=== PATIENT | female | born 2000 | race Caucasian/White ===

== ENCOUNTER 2023-11-11 13:38 | Emergency (ER) | payer OTHER, SELFPAY ==
[2023-11-11 13:44] VITALS: BP 143/97; PULSE 90; TEMP 37.5; O2SAT 96; BMI 18.4
--- NOTE | 2023-11-11 13:49 | ED.FEMALEGU1 ---
HPI - Female Genitourinary General Chief complaint: Urogenital-Female Stated complaint: UTI SYMPTOMS Time Seen by Provider: 11/11/23 13:41 Source: patient Mode of arrival: walk-in Limitations: no limitations History of Present Illness HPI Narrative: 23-year-old female presents for dysuria and frequency. She has had it for 5 days. No back pain fever or vomiting. She believes she has a UTI, she has had 1 before. She only has symptoms when she urinates. Related Data Previous Rx's ?Medication ?Instructions ?Recorded nitrofurantoin 100 mg PO BID 7 days #14 caps 11/11/23 monohydrate/macrocrystals 100 mg capsule (Macrobid) Allergies Allergy/AdvReac Type Severity Reaction Status Date / Time No Known Drug Allergies Allergy Verified 11/11/23 13:43 Review of Systems ROS Narrative A ten point review of systems is negative except as noted above. Exam Narrative Exam Narrative: Nurses note and vital signs reviewed and patient is not hypoxic. General: The patient appears well and in no apparent distress. Patient is resting comfortably on cart. Skin: Warm, dry, no pallor noted. There is no rash noted. Head: Normocephalic, atraumatic Eye: Normal conjunctiva, no drainage Ears, Nose, Mouth, and Throat: oral mucosa is moist. Nares patent. Cardiovascular: Regular Rate and Rhythm Respiratory: Patient is in no distress, no accessory muscle use, lungs are clear to auscultation, no wheezing, rales or rhonchi Back: non-tender, no CVA tenderness bilaterally to percussion. GI: Soft and nontender Musculoskeletal: No joint swelling Neurological: A&O, normal speech Psychiatric: Cooperative Constitutional Vital Signs, click to edit/add: Last Vital Signs Temp 99.5 F 11/11/23 13:44 Pulse 90 11/11/23 13:44 Resp 15 11/11/23 13:44 BP 143/97 H 11/11/23 13:44 Pulse Ox 96 11/11/23 13:44 O2 Del Method Room Air 11/11/23 13:44 Course Vital Signs Vital signs: Vital Signs Temperature 99.5 F 11/11/23 13:44 Pulse Rate 90 11/11/23 13:44 Respiratory Rate 15 11/11/23 13:44 Blood Pressure 143/97 H 11/11/23 13:44 Pulse Oximetry 96 11/11/23 13:44 Oxygen Delivery Method Room Air 11/11/23 13:44 Temperature 99.5 F 11/11/23 13:44 Pulse Rate 90 11/11/23 13:44 Respiratory Rate 15 11/11/23 13:44 Blood Pressure 143/97 H 11/11/23 13:44 Pulse Oximetry 96 11/11/23 13:44 Oxygen Delivery Method Room Air 11/11/23 13:44 MDM - Female Genitourinary MDM Narrative Medical decision making narrative: She is not and UTI is identified. She was started on Macrobid here and prescribed the same. Treatment diagnosis and follow-up were discussed with the patient. Differential Diagnosis Differential diagnosis: Likely urinary tract infection and other (Pyelonephritis) Lab Data Attestation: I reviewed the patient's lab results. Labs: Lab Results 11/11/23 Range/Units 13:46 Urine Color Lt. yellow (YELLOW) Urine Clarity Clear (CLEAR) Urine pH 7.5 (5.0-9.0) Ur Specific [place] 1.010 (1.005-1.025) Urine Protein Negative (NEG/TRACE) mg/dL Urine Glucose (UA) Negative (NEGATIVE) mg/dL Urine Ketones Negative (NEGATIVE) mg/dL Urine Occult Blood Small A (NEGATIVE) Urine Nitrite Negative (NEGATIVE) Urine Bilirubin Negative (NEGATIVE) Urine Urobilinogen 0.2 (0.2-1.0) EU/dL Ur Leukocyte Esterase Large A (NEGATIVE) Urine RBC 0-2 (0-2) #/HPF Urine WBC >100 A (NONE SEEN) #/HPF Ur Squamous Epith Cells Moderate A (NONE/RARE) #/LPF Urine Crystals None seen (None Seen) #/HPF Urine Bacteria Moderate A (NONE SEEN) #/HPF Urine Casts None seen (NONE SEEN) #/LPF Urine Mucus None seen (NONE SEEN) Urine HCG, Qual Negative (NEGATIVE) Discharge Plan Discharge Stand Alone Forms: Portal Instructions Chief Complaint: Urogenital-Female Clinical Impression: Urinary tract infection Patient Disposition: Home, Self-Care Time of Disposition Decision: 14:49 Condition: Good Mode of Transportation: Private Vehicle Prescriptions / Home Meds: New nitrofurantoin monohyd/m-cryst [Macrobid] 100 mg capsule 100 mg PO BID 7 Days Qty: 14 0RF Rx Instructions: must administer with a meal/food Print Language: Malay Instructions: Urinary Tract Infection in Women (ED) Referrals: Physician,Non-Staff, MD [Primary Care Provider] - 1 week
[2023-11-11 14:22] LABS: Bilirubin Urine NEGATIVE (NEGATIVE); Blood Urine SMALL (NEGATIVE); Clarity Urine CLEAR (CLEAR); Color Urine LT. YELLOW (YELLOW); Glucose Urine UA NEGATIVE (NEGATIVE); Ketones Urine NEGATIVE (NEGATIVE); Leukocyte Esterase Urine LARGE (NEGATIVE); Nitrite Urine NEGATIVE (NEGATIVE); Protein Urine NEGATIVE (NEG/TRACE); Urobilinogen Urine 0.2 EU/dL (0.2-1.0); pH Urine 7.5 (5.0-9.0)
[2023-11-11 14:26] LABS: HCG Qualitative Urine* NEGATIVE (NEGATIVE); Internal Control Within Normal Limits
[2023-11-11 14:39] LABS: Bacteria Urine MODERATE #/HPF (NONE SEEN); WBC Urine >100 #/HPF (NONE SEEN)
[2023-11-11 14:40] LABS: Cast Seen? NONE SEEN #/LPF (NONE SEEN); Crystals Seen? None Seen #/HPF (None Seen); Mucus Urine NONE SEEN (NONE SEEN); RBC Urine 0-2 #/HPF (0-2); Squamous Epithelial Cell Urine MODERATE #/LPF (NONE/RARE)
[2023-11-11] MEDS: NITROFURANTOIN MONOHYD/MAC-CRST 100 MG CAPSULE PO (14:56)
[2023-11-11 14:58] VITALS: PULSE 84; O2SAT 99
== END 2023-11-11 14:58 | disposition home or self-care (01) ==
PROVIDERS: Emergency Provider Emergency Medicine
DX: N39.0 Urinary tract infection, site not specified (principal); Z87.440 Personal history of urinary (tract) infections
CPT/HCPCS: 81001; 84703; 99283

== ENCOUNTER 2023-12-24 23:32 | Emergency (ER) | payer OTHER, SELFPAY ==
[2023-12-24 23:38] VITALS: BP 125/75; PULSE 91; TEMP 36.7; O2SAT 98; BMI 18.4
--- OUTSIDE RECORDS SUMMARY | 2023-12-24 23:38 | XMS_ITS | CCD ---
Author Organization [facility] Care Team Providers Care Auto Transmission Specialist Name Role Phone JACKLYN ESPINOZA Admitting Unavailable JACKLYN ESPINOZA Attending Unavailable JACKLYN ESPINOZA Consulting Unavailable JACKLYN ESPINOZA Attending Unavailable JACKLYN ESPINOZA Consulting Unavailable JACKLYN ESPINOZA Admitting Unavailable ELIJAH Dempsey Primary Care Provider [phone] ELIJAH Dempsey Attending Provider Senait Dempsey Admitting Unavailable Senait Dempsey Attending Unavailable Senait Dempsey Primary Care Unavailable Medications Completed/Discontinued Medications Medication Drug Class(es) Dates Sig (Normalized) Sig (Original) dextromethorphan hydrobromide 15 mg / guaiFENesin 400 mg / pseudoephedrine hydrochloride 60 mg oral tablet (3 sources) alpha-Adrenergic Agonist, Uncompetitive G-gemkch-M-asparta te Receptor Antagonist, Sigma-1 Agonist Start: 06-08-2023 End: 12-18-2023 take 4 tablets by mouth every twenty-four hours Pseudoephedrine-Dm- Guaifenesin (Capmist Dm) 60-15-400 mg tablet Discontinued 1 TAB PO EVERY 4-6 HOURS June 08, 2023 1:00am December 18, 2023 9:35am do not exceed 4 doses per 24 hrs nitrofurantoin, macrocrystals 25 mg / nitrofurantoin, monohydrate 75 mg oral capsule (1 source) Nitrofuran Antibacterial Start: 06-15-2023 End: 12-18-2023 take 1 capsule by mouth twice daily at mealtime Nitrofurantoin Monohyd/M-Cryst (Macrobid) 100 mg capsule Discontinued 100 MG PO Twice daily 27 10June 15, 2023 1:00am December 18, 2023 9:35am must administer with a meal/food oseltamivir 75 mg oral capsule (3 sources) Neuraminidase Inhibitor Start: 06-08-2023 End: 12-18-2023 take 1 capsule by mouth twice daily Oseltamivir (Tamiflu) 75 mg capsule Discontinued 75 MG PO Twice daily 10 5 June 08, 2023 1:00am December 18, 2023 9:35am Problems Active Problems Problem Classification Problem Date Documented Da te Episodic/Chronic Immunizations and screening for infectious disease (4 sources) Encounter for immunization; Translations: [ENCOUNTER FOR IMMUNIZATION] Onset: 09-28-2020 Episodic Past or Other Problems Problem Classification Problem Date Documented Da te Episodic/Chronic Genitourinary symptoms and ill-defined conditions (1 source) Dysuria; Translations: [Dysuria] Onset: 06-09-2023 Episodic Results Test Name Value Interpretation Reference Range Facility No Panel InformationOrdered By: Senait Dempsey on 12-18-2023 COVID Antigen (POC) [facility] Quick Strep (POC) [facility] No Panel InformationOrdered By: Senait Dempsey on 06-08-2023 COVID/Influenza Antigen (POC) [facility] Urine Cultureon 06-08-2023 Bacteria identified Cx Nom (U) ORGANISM: Staphylococcus saprophyticus (O:STASAP) [place] Count >100,000 Aerobic RISA Charge (PCMIC38) ------ SUSCEPTIBILITY ----- ORGANISM: O:STASAP ANTIBIOTIC INTERPRETATION RISA Ciprofloxacin S <1 Daptomycin S <0.5 Levofloxacin S <1 Linezolid S 2 Nitrofurantoin S <32 Oxacillin S <0.25 Penicillin S 0.12 Tetracycline S <4 Trimethoprim/Sulfam ethoxazole S <0.5 Vancomycin S 1 S = SUSCEPTIBLE I = INTERMEDIATE R = RESISTANT BLANK = DATA NOT AVAILABLE, OR DRUG NOT ADVISABLE OR TESTED R* = RESISTANCE DUE TO EXTENDED SPECTRUM BETA-LACTAMASES ESBL = EXTENDED SPECTRUM BETA-LACTAMASE TFG = THYMIDINE-DEPENDENT STRAIN [place] = BETA-LACTAMASE POSITIVE IB = INDUCIBLE BETA-LACTAMASE. APPEARS IN PLACE OF 'S' WITH SPECIES KNOWN TO POSSESS INDUCIBLE BETA-LACTAMASES. POTENTIALLY THEY MAY BECOME RESISTANT TO ALL B-LACTAM DRUGS. PERFORMED BY: [facility] [place], [place] [id number] PATHOLOGIST BIG DATA ADMIN TREVON Heath [facility] Comment on above: Performed By: #### C UU #### [facility] [address] [id number] [facility] Vital Signs Date Time Vital Sign Value Performing Clinician Rudyi cristy 12-18-2023 09:35-0400 Body height 144.78 cm [facility] 12-18-2023 09:35-0400 Body mass index (BMI) [Ratio] 18.9 kg/m2 [facility] 12-18-2023 09:35-0400 Body temperature 97.5 [degF] [facility] 12-18-2023 09:35-0400 Body weight 39.71 kg [facility] 12-18-2023 09:35-0400 Diastolic blood pressure 61 mm[Hg] [facility] 12-18-2023 09:35-0400 Heart rate 109 /min [facility] 12-18-2023 09:35-0400 Respiratory rate 16 /min [facility] 12-18-2023 09:35-0400 SaO2% (BldA) [Mass fraction] 99 % [facility] 12-18-2023 09:35-0400 Systolic blood pressure 101 mm[Hg] [facility] 06-08-2023 17:54-0500 Body height 144.78 cm [facility] 06-08-2023 17:54-0500 Body mass index (BMI) [Ratio] 19.3 kg/m2 [facility] 06-08-2023 17:54-0500 Body temperature 99.3 [degF] [facility] 06-08-2023 17:54-0500 Body weight 40.53 kg [facility] 06-08-2023 17:54-0500 Heart rate 104 /min [facility] 06-08-2023 17:54-0500 Respiratory rate 16 /min [facility] 06-08-2023 17:54-0500 SaO2% (BldA) [Mass fraction] 98 % [facility] Encounters Encounter Date Encounter Type Care Provider Facility Start: 12-18-2023 End: 12-18-2023 ambulatory [facility] Work Phone: Start: 12-18-2023 End: 12-18-2023 Patient encounter procedure [facility] Physician [facility] [place] Work Phone: Start: 06-09-2023 End: 06-09-2023 Patient encounter procedure ELIJAH Dempsey Work Phone: [facility] [place] Work Phone: Start: 06-09-2023 End: 06-09-2023 ambulatory GUARD CHIEF Senait Dempsey Work Phone: [facility] Work Phone: Start: 06-08-2023 End: 06-08-2023 ambulatory [facility] Work Phone: Start: 06-08-2023 End: 06-08-2023 Patient encounter procedure [facility] [place] Work Phone: Start: 09-28-2020 End: 09-29-2020 ambulatory [facility] Facility:H1 Start: 09-07-2020 End: 09-08-2020 [facility] Facility:H1 Procedures Date Procedure Procedure Detail Performing Clinician Start: 12-18-2023 COVID Antigen (POC) Start: 12-18-2023 Quick Strep (POC) Start: 06-08-2023 COVID/Influenza Antigen (POC) Plan of Treatment Date Care Activity Detail Author Start: 06-08-2023 Bacteria identified in Urine by Culture [facility] Payers Date Payer Category Payer Self-pay 2002 Unknown [id number] 2002 Unknown [id number] 1959 Unknown [id number] Unknown [id number] Social History Date Type Detail [facility] Work Phone: Start: 2000 Sex Assigned At Female F [facility] Evaluation note Note Date & Type Note Facility Evaluation note No assessment information availa ble [facility] Work Phone: Summary Purpose Family History Relationship Condition Age at Onset Recorded Date/T edelmira father Hypertension Unknown Advance Directives Advance Directive Response Recorded Date/ Time Advance Directives No May 5:45pm Advance Directive Response Recorded Date/ Time Advance Directives No May 6:45pm Chief Complaint and Reason for Visit Chief Complaint sinus congestion, dy suria Chief Complaint sinus congestion, dy suria R30.0 Chief Complaint Sore throat Additional Source Comments INFORMATION SOURCE (unrecogn ized section and content) DATE CREATED AUTHOR 11/06/2020 [facility] DATE CREATED AUTHOR 'S ORGANIZ ATION 11/18/2023 [facility] Care Teams (unrecognized sec tion and content) Team Status: Active Member Role Status Dates NON STAFF Primary Care Provider Active Team Status: Inactive Member Role Status Dates Senait Dempsey APRN Attending Provider Active Start: June 08, 2023 End: June 08, 2023 NON STAFF Primary Care Provider Active Start: June 08, 2023 End: June 08, 2023 Team Status: Active Member Role Status Dates Senait Dempsey APRN Primary Care Provider Active Team Status: Inactive Member Role Status Dates Senait Dempsey APRN Primary Care Provi rogerio, Attending Provider Active Start: June 09, 2023 End: June 09, 2023 Team Status: Inactive Member Role Status Dates Senait Dempsey APRN Primary Care Provi rogerio, Attending Provider Active Start: December 18, 2023 End: December 18, 2023 Goals (unrecognized section and content) Goals may be documented in a n alternate sectionGoals may be documented in an alternate sectionGoals may be documented in an alternate section FOR RECORDS PERTAINING TO PATIENTS WHO ARE OR HAVE BEEN ENROLLED IN A CHEMICAL DEPENDENCY/SUBSTANCEABUSE PROGRAM, SOME INFORMATION MAY BE OMITTED. This clinical summary was aggregated from multiple sources. Caution should be exercised in using it in the provision of clinical care. This summary normalizes information from multiple sources, and as a consequence, information in this document may materially change the coding, format and clinical context of patient data. In addition, data may be omitted in some cases. CLINICAL DECISIONS SHOULD BE BASED ON THE PRIMARY CLINICAL RECORDS. [employer] [facility]. provides no warranty or guarantee of the accuracy or completeness of information in this document.
--- NOTE | 2023-12-24 23:57 | ED_ITS ---
HPI - Female Genitourinary General Chief complaint: Urogenital-Female Stated complaint: VAGINAL BLEEDING Time Seen by Provider: 12/24/23 23:38 Source: patient Mode of arrival: walk-in Limitations: no limitations History of Present Illness HPI Narrative: This 23-year-old female presents for evaluation of vaginal pain, light vaginal bleeding due to vaginal tears that she sustained during sexual intercourse with her boyfriend. She states the symptoms started this morning. She is not having any dysuria or hematuria. She states they have been using appropriate lubricant but she has still torn in her vagina. She denies any abdominal pain or back pain. She denies any vaginal discharge odor or itching but is having some pain due to the tears in her vagina. When questioned without her boyfriend in the room she denies that she is a victim of sexual trafficking and states that she is in a consensual sexual relationship with her boyfriend. Related Data Home Medications ?Medication ?Instructions ?Recorded ?Confirmed No Known Home Medications 12/24/23 12/24/23 Allergies Allergy/AdvReac Type Severity Reaction Status Date / Time No Known Drug Allergies Allergy Verified 12/24/23 23:44 Review of Systems ROS Status of ROS 10 or more systems reviewed and unremark able except as noted in history and below PFSH PFSH Social History Little interest or pleasure in doing things: not at all Feeling down, depressed, or hopeless: not at all Exam Narrative Exam Narrative: Vital signs and Nursing Notes reviewed: Patient is afebrile with a normal pulse, she is not hypoxic with pulse ox of 98% on room air General: Awake, alert, oriented, no acute distress, lying comfortably on the stretcher Neck: Supple, no meningeal signs, no anterior or posterior cervical lympha denopathy Chest: Lungs are clear to auscultation with good air entry, there is no wheezing rhonchi or rales appreciated no accessory muscle use, patient is speaking in complete sentences-no chest wall tenderness to palpation CVS: Regular rate and rhythm S1-S2, no murmurs rubs or gallops, pulses are brisk and equal bilaterally ABD: Soft, flat nondistended, nontender, no rebound guarding or rigidity, bowel sounds are normal, no pulsatile masses appreciated - exam assisted by BEKAH Aguirre-normal labia majora and minora with no tears or notable abnormalities. Pelvic exam performed after Uro-Jet was placed into the vagina for pain control, there is a small amount of notable vaginal bleeding on the left and right side of the vaginal vault with no active hemorrhaging. I am unable to actually ascertain exactly where the bleeding is coming from due to the rugae in the vagina. Cervix is normal in appearance. No discharge or bruising or tears noted to the cervix. Extremities: Moving all extremities, no lower extremity tenderness or swelling noted, negative Homans' sign, pulses are brisk and equal bilaterally Skin: Normal in appearance without rash,pallor, petechiae or purpura Neuro: No focal deficits Constitutional Vital Signs, click to edit/add: Last Vital Signs Temp 98.1 F 12/24/23 23:38 Pulse 91 H 12/24/23 23:38 Resp 16 12/24/23 23:38 BP 125/75 12/24/23 23:38 Pulse Ox 98 12/24/23 23:38 O2 Del Method Room Air 12/24/23 23:38 Course Vital Signs Vital signs: Vital Signs Temperature 98.1 F 12/24/23 23:38 Pulse Rate 91 H 12/24/23 23:38 Respiratory Rate 16 12/24/23 23:38 Blood Pressure 125/75 12/24/23 23:38 Pulse Oximetry 98 12/24/23 23:38 Oxygen Delivery Method Room Air 12/24/23 23:38 Temperature 98.1 F 12/24/23 23:38 Pulse Rate 91 H 12/24/23 23:38 Respiratory Rate 16 12/24/23 23:38 Blood Pressure 125/75 12/24/23 23:38 Pulse Oximetry 98 12/24/23 23:38 Oxygen Delivery Method Room Air 12/24/23 23:38 MDM - Female Genitourinary MDM Narrative Medical decision making narrative: This 23-year-old female presents for evaluation of vaginal pain and light vaginal bleeding related to sexual intercourse. She is not having any severe pain. She is not having any abdominal pain nausea or vomiting. She states that she and her boyfriend are having symptoms functional sex. There is no concern for human trafficking. The patient is very small and petite but her boyfriend is rather large. She states he is her only sexual partner. They do use condoms for control and water-based lubricant. Her physical exam is benign with some mild bleeding in the vaginal vault. I am unable to appreciate any large lacerations and there is no heavy bleeding or clots noted. Her cervix is normal in appearance. Urine test and urinalysis was ordered and her test is negative and urine is negative for infection. She was medicated with a dose of ibuprofen in the emergency department and will be discharged home with prescription for badges sill. I encouraged her to take breaks from sexual intercourse as she states they are having sex almost every day sometimes every other day. She may need longer for her vaginal mucosa to recover. She verbalizes understanding of this. She will be given a prescription for ibuprofen and Vagisil cream to use as needed. She will be referred to Dr. Sorenson for further evaluation and treatment. Lab Data Attestation: I reviewed the patient's lab results. Labs: Lab Results 12/24/23 Range/Units 23:45 Urine Color Yellow (YELLOW) Urine Clarity Clear (CLEAR) Urine pH 6.0 (5.0-9.0) Ur Specific [place] >=1.030 A (1.005-1.025) Urine Protein Trace (NEG/TRACE) mg/dL Urine Glucose (UA) Negative (NEGATIVE) mg/dL Urine Ketones 15 A (NEGATIVE) mg/dL Urine Occult Blood Negative (NEGATIVE) Urine Nitrite Negative (NEGATIVE) Urine Bilirubin Negative (NEGATIVE) Urine Urobilinogen 0.2 (0.2-1.0) EU/dL Ur Leukocyte Esterase Negative (NEGATIVE) Urine HCG, Qual Negative (NEGATIVE) Discharge Plan Discharge Chief Complaint: Urogenital-Female Clinical Impression: Genito-pelvic pain related to vaginal penetration, Tear of vaginal wall Patient Disposition: Home, Self-Care Time of Disposition Decision: 00:23 Condition: Good Prescriptions / Home Meds: No Action No Known Home Medications Print Language: Guinean Instructions: Sitz Bath (DC), Dyspareunia in Women (DC) Additional Instructions: Use extra water-based lubricant, take breaks to allow your vaginal mucosa to heal in between episodes of sexual intercourse, use vaginal as needed for pain and ibuprofen as needed for pain. Follow-up with CUSTOMER RECORDS DIVISION SUPERVISOR for further evaluation and treatment. Referrals: Raj Sorenson DO [Physician] - 1 week Physician,Non-Staff, MD [Primary Care Provider] - 1 week
[2023-12-25 00:02] LABS: Bilirubin Urine NEGATIVE (NEGATIVE); Blood Urine NEGATIVE (NEGATIVE); Clarity Urine CLEAR (CLEAR); Color Urine YELLOW (YELLOW); Glucose Urine UA NEGATIVE (NEGATIVE); Ketones Urine 15 mg/dL (NEGATIVE); Leukocyte Esterase Urine NEGATIVE (NEGATIVE); Nitrite Urine NEGATIVE (NEGATIVE); Protein Urine TRACE mg/dL (NEG/TRACE); Specific Gravity Urine >=1.030 (1.005-1.025); Urobilinogen Urine 0.2 EU/dL (0.2-1.0)
[2023-12-25 00:06] LABS: HCG Qualitative Urine* NEGATIVE (NEGATIVE); Internal Control Within Normal Limits
[2023-12-25] MEDS: LIDOCAINE 2% JELLY 10 ML UR (00:07)
--- NOTE | 2023-12-25 00:17 | PC.NURSE ---
This RN present during SCHOOL AIDE exam. Pt tolerated procedure well.
[2023-12-25 00:25] LABS: Mucus Urine LARGE (NONE SEEN); RBC Urine 0-2 #/HPF (0-2); Squamous Epithelial Cell Urine RARE #/LPF (NONE/RARE); WBC Urine 0-2 #/HPF (NONE SEEN)
[2023-12-25 00:27] LABS: Bacteria Urine TRACE #/HPF (NONE SEEN); Cast Seen? NONE SEEN #/LPF (NONE SEEN); Crystals Seen? None Seen #/HPF (None Seen)
[2023-12-25] MEDS: IBUPROFEN 400 MG TABLET PO (00:31)
== END 2023-12-25 00:37 | disposition home or self-care (01) ==
PROVIDERS: Emergency Provider Emergency Medicine
DX: R10.2 Pelvic and perineal pain (principal); N93.0 Postcoital and contact bleeding; S31.41XA Laceration without foreign body of vagina and vulva, initial encounter; X58.XXXA Exposure to other specified factors, initial encounter
CPT/HCPCS: 81001; 84703; 99284

== ENCOUNTER 2024-03-18 19:47 | Outpatient (REF) | payer OTHER, SELFPAY ==
--- OUTSIDE RECORDS SUMMARY | 2024-03-18 19:53 | XMS_ITS | CCD ---
Author Organization [facility] Inform ion Partnership [facility] Care Team Providers Care Police Artist Name Role Phone JACKLYN ESPINOZA Admitting Unavailable JACKLYN ESPINOZA Attending Unavailable JACKLYN ESPINOZA Consulting Unavailable JACKLYN ESPINOZA Attending Unavailable JACKLYN ESPINOZA Consulting Unavailable JACKLYN ESPINOZA Admitting Unavailable ELIJAH Dempsey Primary Care Provider [phone] ELIJAH Dempsey Attending Provider Senait Dempsey Admitting Unavailable Senait Dempsey Attending Unavailable Senait Dempsey Primary Care Unavailable WESLEY DONALDSON Attending Unavailable ALICIA GOMEZ Attending Unavailable Unavailable Primary Care Provider Unavailabl e Medications Current Medications Medication Drug Class(es) Dates Sig (Normalized) Sig (Original) benzocaine 200 mg/ml / resorcinol 30 mg/ml vaginal cream (4 sources) Standardized Chemical Allergen Start: 12-25-2023 Benzocaine-Resorc inol (Vagisil Maximum Strength) 20-3 % cream APPLY TO THE AFFECTED AREA(S) DIRECTED NEEDED FOR PAIN 12/25/2023 Active cephalexin 500 mg oral capsule (3 sources) Cephalosporin Antibacterial Start: 01-17-2024 End: 01-24-2024 take 1 capsule by mouth in the morning, then take 1 capsule by mouth in the evening, then take 1 capsule by mouth at bedtime cephalexin (Keflex) 500 MG capsule Indications: Dysuria Take 1 capsule (500 mg) by mouth in the morning and 1 capsule (500 mg) in the evening and 1 capsule (500 mg) before bedtime. Do all this for 7 days. 21 capsule 01/17/2024 01/24/2024 Active ibuprofen 400 mg oral tablet (4 sources) Nonsteroidal Anti-inflammatory Drug Start: 12-25-2023 take 1 tablet by mouth every six hours as needed ibuprofen 400 MG tablet Take 400 mg by mouth every 6 (six) hours if needed 12/25/2023 Active Completed/Discontinued Medications Medication Drug Class(es) Dates Sig (Normalized) Sig (Original) dextromethorphan hydrobromide 15 mg / guaiFENesin 400 mg / pseudoephedrine hydrochloride 60 mg oral tablet (3 sources) alpha-Adrenergic Agonist, Uncompetitive K-hjwhxb-Y-asparta te Receptor Antagonist, Sigma-1 Agonist Start: 06-08-2023 [...] capsule Discontinued 100 MG PO Twice daily 14 June 15, 2023 1:00am December 18, 2023 9:35am must administer with a meal/food oseltamivir 75 mg oral capsule (3 sources) Neuraminidase Inhibitor Start: 06-08-2023 End: 12-18-2023 take 1 capsule by mouth twice daily Oseltamivir (Tamiflu) 75 mg capsule Discontinued 75 MG PO Twice daily 10 5 June 08, 2023 1:00am December 18, 2023 9:35am Problems Problem Classification Problem Date Documented Da te Episodic/Chronic Contraceptive and procreative management (5 sources) Patient encounter status; Translations: [Encounter for other general counseling and advice on contraception] Onset: 01-07-2024 01-07-2024 Episodic Genitourinary symptoms and ill-defined conditions (3 sources) Dysuria; Translations: [Dysuria] Onset: 06-09-2023 01-17-2024 Episodic Immunizations and screening for infectious disease (4 sources) Encounter for immunization; Translations: [ENCOUNTER FOR IMMUNIZATION] Onset: 09-28-2020 Episodic Sprains and strains (5 sources) Vaginal muscle tear; Translations: [Strain of muscle, fascia and tendon of pelvis, initial encounter] Onset: 01-07-2024 01-07-2024 Episodic Urinary tract infections (2 sources) Urinary tract infectious disease; Translations: [Urinary tract infection, site not specified] 01-17-2024 Episodic Results Test Name Value Interpretation Reference Range Facility No Panel Informationon 01-22 STAPHYLOCOCCUS EPIDERMIDIS, HAEMOLYTICUS, LUGDUNENSIS, SAPROPHYTICUS (URINA 0.000 [facility] STAPHYLOCOCCUS EPIDERMIDIS, HAEMOLYTICUS, LUGDUNENSIS, SAPROPHYTICUS (URINA Not detected [facility] URINARY TRACT INFECTION (HTR X)on 01-23-2024 ACINETOBACTER BAUMANII 0.000 [facility] ACINETOBACTER BAUMANII Not detected [facility] KESHAV ALBICANS, PARAPSILOSIS, TROPICALIS 0.000 [facility] KESHAV ALBICANS, PARAPSILOSIS, TROPICALIS Not detected [facility] KESHAV GLABRATA 0.000 [facility] KESHAV GLABRATA Not detected [facility] KESHAV KRUSEI 0.000 [facility] KESHAV KRUSEI Not detected [facility] CITROBACTER FREUNDII 0.000 [facility] CITROBACTER FREUNDII Not detected [facility] ENTEROBACTER AEROGENES, CLOACAE 0.000 [facility] ENTEROBACTER AEROGENES, CLOACAE Not detected [facility] ENTEROCOCCUS FAECALIS, FAECIUM 0.000 [facility] ENTEROCOCCUS FAECALIS, FAECIUM Not detected [facility] ESCHERICHIA COLI 0.000 [facility] ESCHERICHIA COLI Not detected [facility] KLEBSIELLA PNEUMONIAE, OXYTOCA 0.000 [facility] KLEBSIELLA PNEUMONIAE, OXYTOCA Not detected [facility] MORGANELLA MORGANII 0.000 [facility] MORGANELLA MORGANII Not detected [facility] PROTEUS MIRABILIS, VULGARIS 0.000 [facility] PROTEUS MIRABILIS, VULGARIS Not detected [facility] PSEUDOMONAS AERUGINOSA 0.000 [facility] PSEUDOMONAS AERUGINOSA Not detected [facility] SERRATIA MARCESCENS 0.000 [facility] SERRATIA MARCESCENS Not detected [facility] STAPHYLOCOCCUS AUREUS 0.000 [facility] STAPHYLOCOCCUS AUREUS Not detected [facility] STREPTOCOCCUS AGALACTIAE (GROUP B STREP) 0.000 [facility] STREPTOCOCCUS AGALACTIAE (GROUP B STREP) Not detected [facility] STREPTOCOCCUS PYOGENES (GROUP A STREP) 0.000 [facility] STREPTOCOCCUS PYOGENES (GROUP A STREP) Not detected [facility] Urinalysis macro (dipstick) panel (U)on 01-17-2024 Bilirubin, UA Negative Negative - 4(70) +++ mg/dL [facility] Blood, UA Positive Negative - 50 [place]/mcL [facility] Comment on above: trace Clarity, UA Clear [facility] Color, UA Yellow [facility] Glucose, UA Negative Negative - 1999(110) ++++ mg/dL [facility] Interpretation and review of laboratory results Abnormal [facility] Ketones, UA Negative Negative - 160(16) ++++ mg/dL [facility] Leukocytes, UA Positive Negative - 500+++ [place]/mcL [facility] Comment on above: small Nitrite, UA Negative Negative - Positive [facility] pH, UA 7.0 5 - 9 [facility] Protein, UA Negative Negative - 1999(20) ++++ mg/dL [facility] Spec Grav, UA 1.025 1 - 1.03 [facility] Urobilinogen, UA 0.2 0.2 - 12 mg/dL [facility] No Panel InformationOrdered By: Senait Dempsey on 12-18-2023 COVID Antigen (POC) [facility] Quick Strep (POC) [facility] No Panel InformationOrdered By: Senait Dempsey on 06-08-2023 COVID/Influenza Antigen (POC) [facility] Urine Cultureon 06-08-2023 Bacteria identified Cx Nom (U) ORGANISM: Staphylococcus saprophyticus (O:STASAP) [place] Count >100,000 Aerobic RISA Charge (PCMIC38) ------ [...] RESISTANT TO ALL B-LACTAM DRUGS. PERFORMED BY: [address] [id number] PATHOLOGIST PAPER SORTER AND COUNTER TREVON BUNCH M.D. Normal [facility] Comment on above: Performed By: #### C UU #### [place] [id number] [facility] Vital Signs Date Time Vital Sign Value Performing Clinician Facility 01-17-2024 09:27-0400 Body mass index (BMI) [Ratio] 18.39 kg/m2 Alicia ZAVALA Work Phone: [facility] 01-17-2024 09:27-0400 Body weight 38.56 kg Alicia ZAVALA Work Phone: [facility] 01-17-2024 09:27-0400 Diastolic blood pressure 58 mm[Hg] Alicia ZAVALA Work Phone: [facility] 01-17-2024 09:27-0400 Systolic blood pressure 102 mm[Hg] Alicia ZAVALA Work Phone: [facility] 12-18-2023 09:35-0400 Body height 144.78 cm [facility] 12-18-2023 09:35-0400 Body mass index (BMI) [Ratio] 18.9 kg/m2 [facility] 12-18-2023 09:35-0400 Body temperature 97.5 [degF] [facility] 12-18-2023 09:35-0400 Body weight 39.71 kg [facility] 12-18-2023 09:35-0400 Diastolic blood pressure 61 mm[Hg] [facility] 12-18-2023 09:35-0400 Heart rate 109 /min [facility] 12-18-2023 09:35-0400 Respiratory rate 16 /min [facility] 12-18-2023 09:35-0400 SaO2% (BldA) [Mass fraction] 99 % [facility] 12-18-2023 09:35-0400 Systolic blood pressure 101 mm[Hg] [facility] 06-08-2023 17:54-0500 Body height 144.78 cm [facility] 06-08-2023 17:54-0500 Body mass index (BMI) [Ratio] 19.3 kg/m2 [facility] 06-08-2023 17:54-0500 Body temperature 99.3 [degF] [facility] 06-08-2023 17:54-0500 Body weight 40.53 kg [facility] 06-08-2023 17:54-0500 Heart rate 104 /min [facility] 06-08-2023 17:54-0500 Respiratory rate 16 /min [facility] 06-08-2023 17:54-0500 SaO2% (BldA) [Mass fraction] 98 % [facility] Encounters Encounter Date Encounter Type Care Provider Facility Start: 03-18-2024 End: 03-18-2024 Bamboo flowsheet Wesley Delta DO Work Phone: [facility] Start: 03-18-2024 End: 03-18-2024 Bamboo flowsheet Wesley Delta DO Work Phone: [facility] Start: 01-17-2024 End: 01-17-2024 Bamboo flowsheet Alicia ZAVALA Work Phone: [facility] Start: 01-17-2024 End: 01-23-2024 Bamboo flowsheet Alicia ZAVALA Work Phone: [facility] Start: 01-17-2024 End: 01-23-2024 External Result Encounter Alicia ZAVALA Work Phone: [facility] External Department Unsolicited Start: 01-17-2024 End: 01-17-2024 Office outpatient visit 15 minutes Alicia ZAVALA Work Phone: [facility] Comment on above: Urinary tract infect ion without hematuria, site unspecified; Dysuria Start: 01-17-2024 End: 01-17-2024 ambulatory ALICIA GOMEZ Not Available Start: 01-07-2024 End: 01-07-2024 ambulatory WESLEY DONALDSON Not Available Start: 12-18-2023 End: 12-18-2023 ambulatory [facility] Work Phone: Start: 12-18-2023 End: 12-18-2023 Patient encounter procedure [facility] Work Phone: Start: 06-09-2023 End: 06-09-2023 Patient encounter procedure [employer]PER[employer]OR [employer] Senait Dempsey Work Phone: [facility] [place] Work Phone: Start: 06-09-2023 End: 06-09-2023 ambulatory [employer] Senait Dempsey Work Phone: [facility] Work Phone: Start: 06-08-2023 End: 06-08-2023 ambulatory [facility] Work Phone: Start: 06-08-2023 End: 06-08-2023 Patient encounter procedure [facility] Work Phone: Start: 09-28-2020 End: 09-29-2020 ambulatory [facility] Facility:H1 Start: 09-07-2020 End: 09-08-2020 [facility] Facility: Procedures Date Procedure Procedure Detail Performing Clinician Start: 01-17-2024 Urnls dip stick/tabl et rgnt non-auto w/o micrscp Alicia ZAVALA Work Phone: Start: 01-17-2024 URINARY TRACT INFECT ION (HTRX) Alicia ZAVALA Work Phone: Start: 12-18-2023 COVID Antigen (POC) Start: 12-18-2023 Quick Strep (POC) Start: 06-08-2023 COVID/Influenza Anti gen (POC) Plan of Treatment Date Care Activity Detail Author Start: 03-18-2024 End: 03-18-2024 Patient encounter procedure [facility] Comment on above: Arrived Start: 01-17-2024 End: 01-17-2024 Patient encounter procedure 01/17/2024 9:00 AM EDT Office Visit [facility] [address] [place] [id number] Alicia Gomez PA [address] [place] [address] Arrived [facility] Comment on above: Arrived Start: 06-08-2023 Bacteria identified in Urine by Culture [facility] CHLAMYDIA TRACHOMATI S (GENITO/STI) CHLAMYDIA TRACHOMATIS (GENITO/STI) Lab Routine Dysuria Ordered: 01/17/2024 [facility] Comment on above: Ordered: 01/17/2024 Neisseria gonorrhoea e DNA [Presence] in Unspecified specimen by GABINO with probe detection Neisseria gonorrhea DNA probe, direct Lab Routine Dysuria Ordered: 01/17/2024 [facility] Comment on above: Ordered: 01/17/2024 SURESWAB(R) ADVANCED VAGINITIS PLUS, TMA SURESWAB(R) ADVANCED VAGINITIS PLUS, TMA Pathology and Cytology Routine Dysuria Ordered: 01/17/2024 [facility] Work Phone: Comment on above: Ordered: 01/17/2024 Payers Date Payer Category Payer Self-pay 2022 Private Health Insurance [employer] [id number] 2022 Unknown [employer] [id number] 2022-Present [address] [place] [address] [id number] 2002 Unknown [id number] 2002 Unknown [id number] 2002 Unknown [id number] 2002 Unknown [id number] 1959 Unknown [id number] Unknown [id number] Social History Date Type Detail Facility Tobacco smoking status [facility] Unknown if ever smoked [facility] Work Phone: Start: 2002 Sex Assigned At Female [facility] Tobacco smoking status [facility] Tobacco smoking consumption unknown [facility] Start: 2002 Sex assigned at Not on file [facility] Gender identity Not on file [facility] are History of Present illness Narrative 01-17-2024 LUCAS Alexander - 01/17/2024 9:00 AM EDT Note Date & Type Note Facility 01-17-2024 History of Presen t illness Narrative Reason for Appointment: Patient ID: Marilynn Knowles is a 23 y.o. female who presents for UTI (Pt present today for possible UTI and other vaginal issues. ) Patient presents today for Acute Visit. MEDICATIONS Current Outpatient Medications Medication Instructions Benzocaine-Resorcinol (Vagisil Maximum Strength) 20-3 % cream APPLY TO THE AFFECTED AREA(S) DIRECTED NEEDED FOR PAIN ibuprofen 400 mg, Oral, Every 6 hours PRN ALLERGIES No Known Allergies PROBLEMS Active Ambulatory Problems Diagnosis Date Noted control counseling 01/07/2024 Tear of vaginal muscle 01/07/2024 Resolved Ambulatory Problems Diagnosis Date Noted No Resolved Ambulatory Problems No Additional Past Medical History HISTORY PAST MEDICAL HISTORY SOCIAL HISTORY No past medical history on file. Social History Tobacco Use Smoking status: Not on file Smokeless tobacco: Not on file Substance Use Topics Alcohol use: Not on file Drug use: Not on file FAMILY HISTORY No family history on file. SURGICAL HISTORY History reviewed. No pertinent surgical history. REVIEW OF SYSTEMS Review of Systems: Review of Systems Constitutional: Negative. HENT: Negative. Eyes: Negative. Respiratory: Negative. Cardiovascular: Negative. Gastrointestinal: Negative. Genitourinary: Negative. Musculoskeletal: Negative. Skin: Negative. Neurological: Negative. All other systems reviewed and are negative. Hematological: Negative. Endocrine: Negative. Allergic/Immunologic: Negative. OBJECTIVE Objective: Physical Exam Constitutional: Appearance: Normal appearance. She is normal weight. Genitourinary: Right Labia: No rash, lesions or skin changes. Left Labia: No lesions, skin changes or rash. No vaginal erythema, ulceration or granulation tissue. No cervical discharge. HENT: Head: Normocephalic. Cardiovascular: Rate and Rhythm: Normal rate. Pulses: Normal pulses. Pulmonary: Effort: Pulmonary effort is normal. Breath sounds: Normal breath sounds. Abdominal: Palpations: Abdomen is soft. Musculoskeletal: General: Normal range of motion. Neurological: General: No focal deficit present. Mental Status: She is alert and oriented to person, place, and time. Psychiatric: Mood and Affect: Mood normal. Behavior: Behavior normal. Thought Content: Thought content normal. Judgment: Judgment normal. Vitals and nursing note reviewed. Vitals: Estimated body mass index is 18.39 kg/m as calculated from the following: Height as of 01/07/24: 4' 9 . Weight as of 01/07/24: 85 lb. BP: Patient's last menstrual period was 12/19/2023. ASSESSMENT & PLAN ICD-10-CM 1. Urinary tract infection without hematuria, site unspecified N39.0 POCT urinalysis dipstick manually resulted Pt present today for a possible UTI. Pt complains of burning with urination for a few days now. Pt has a history of UTI's. Pt also complains of vaginal lesions from intercourse and feels the lesions are not healing well. Pt would like to have Alicia Gomez to exam her at today's visit. Urine was sent out for cx's. A vaginal exam was preformed cultures obtained by Alicia Gomez PA-C. Keflex was sent to pharmacy for patient to begin taking for dysuria, no lesions appreciated today Documented by Lourdes Engle MA on behalf of: LUCAS Alexander documented in this encounter [facility] Evaluation note Note Date & Type Note Facility Evaluation note [facility]: Evaluation note Note Date & Type Note Facility Evaluation note Diagnosis Urinary tract infection without hematuria, site unspecified Dysuria documented in this encounter [facility] Summary Purpose Family History Relationship Condition Age [...] [facility] DATE CREATED AUTHOR AUTHOR'S ORGANIZ ATION 11/18/2023 [facility] DATE CREATED AUTHOR AUTHOR'S ORGANIZ ATION 01/19/2024 [facility] d[facility] Specialists EPIC Care Teams (unrecognized sec tion and content) [...] may be documented in an alternate section Reason for Visit (unrecogniz ed section and content) Reason Comments UTI Pt present today for possible UTI and other vaginal issues. FOR RECORDS PERTAINING TO PATIENTS WHO ARE [...] BE BASED ON THE PRIMARY CLINICAL RECORDS. [facility] [employer] [facility]. provides no warranty or guarantee of the accuracy or completeness of information in this document.
[2024-03-25 15:09] LABS: Age Gdln ACOG Testing Note (.); IGP, rfx Aptima HPV ASCU Note (.)
== END 2024-03-18 19:48 | disposition home or self-care (01) ==
LOC: LAB 19:47
PROVIDERS: Visit Provider Obstetrics & Gynecology
DX: Z01.419 Encounter for gynecological examination (general) (routine) without abnormal findings (principal)
CPT/HCPCS: 88175